=== PATIENT | female | born 1965 ===

== ENCOUNTER 2017-03-23 10:26 | Day surgery (SDC) | payer SELFPAY ==
[2017-03-23] MEDS ORDERED: Lactated Ringer's 1,000 ML IV ONE (10:34)
[2017-03-23] MEDS ORDERED: Propofol 10 mg/ml Inj (20 ML) ONE ×2 (11:35→12:02)
[2017-03-23] MEDS ORDERED: Lidocaine 2% MPF (5 ml) Inj ONE (11:36)
[2017-03-23 12:41] VITALS: BP 124/64; PULSE 62; RESP 14; TEMP 98; O2SAT 100
== END 2017-03-23 12:41 | disposition home or self-care (01) ==
LOC: H.ENDO 10:26
PROVIDERS: ATTEND Internal Medicine Gastroenterology
DX: Z12.11 Encounter for screening for malignant neoplasm of colon (principal); K64.8 Other hemorrhoids
CPT/HCPCS: 45378; J2704; J7120